=== PATIENT | female | born 1995 | race Caucasian/White ===

== ENCOUNTER 2019-08-25 19:08 | Inpatient (IN) | payer OTHER ==
[~2019-08-25] VITALS: Ht 160 cm; Wt 51.8 kg
[2019-08-25] MEDS ORDERED: ACETAMINOPHEN 325 MG TABLET PO PRN (20:00)
[2019-08-25] MEDS ORDERED: POLYETHYLENE GLYCOL 17 GM PACKET PO PRN (20:00)
[2019-08-25] MEDS ORDERED: DOCUSATE 100 MG CAPSULE PO PRN (20:00)
[2019-08-25] MEDS ORDERED: BISACODYL 10 MG SUPP PR PRN (20:00)
[2019-08-25] MEDS ORDERED: PLEASE ENTER ALLERGIES MC SCH (21:00)
[2019-08-25] MEDS ORDERED: PLEASE ENTER HEIGHT AND WEIGHT MC SCH (21:00)
[2019-08-25 21:45] VITALS: BP 130/79
[2019-08-25] MEDS ORDERED: NICOTINE 14MG/24 HR PATCH.TD24 ONE (22:38)
[2019-08-25 22:47] VITALS: BP 130/79
[2019-08-25] MEDS ORDERED: NICOTINE 14MG/24 HR PATCH.TD24 TD SCH (23:00)
[2019-08-26] MEDS: ONDANSETRON ODT 4 MG PO PRN ×2 (01:09→22:59)
[2019-08-26 01:58] LABS: MICROSCOPIC INDICATED
[2019-08-26 08:10] VITALS: BP 103/61
[2019-08-26 08:29] LABS: BASOPHILS # (AUTO) 0.03 x10^3/uL (0-0.1); BASOPHILS % (AUTO) 1 % (0-1); EOSINOPHILS # (AUTO) 0.05 x10^3/uL (0-0.4); EOSINOPHILS % (AUTO) 1 % (1-7); LYMPHOCYTES # (AUTO) 2.51 x10^3/uL (1-3.4); LYMPHOCYTES % (AUTO) 39 % (22-44); MD NO; MEAN CORPUSCULAR HGB CONC 33.6 g/dL (32.4-35.8); MEAN CORPUSCULAR VOLUME 92.3 fL (80-100); MEAN PLATELET VOLUME 7.1 fL (7.4-10.4); MONOCYTES # (AUTO) 0.53 x10^3/uL (0.2-0.8); MONOCYTES % (AUTO) 8 % (2-9); NEUTROPHILS # (AUTO) 3.27 x10^3/uL (1.8-6.8); NEUTROPHILS % (AUTO) 51 % (42-75); PLATELET COUNT 289 x10^3/uL (130-400); RED BLOOD COUNT 4.61 x10^6/uL (3.82-5.3); RED CELL DISTRIBUTION WIDTH 12.7 % (9.6-15.2)
[2019-08-26 08:43] LABS: ALBUMIN 3.6 g/dL (3.4-5.0); ANION GAP 12 mmol/L (5-15); CALCIUM 8.8 mg/dL (8.5-10.1); CHLORIDE 104 mmol/L (98-107)
[2019-08-26 09:10] LABS: ALANINE AMINOTRANSFERASE 15 U/L (12-78); ALKALINE PHOSPHATASE 62 U/L (45-117); BILIRUBIN, DIRECT 0.2 mg/dL (0.1-0.2); BILIRUBIN,INDIRECT 0.3 mg/dL (0.0-2.0); BILIRUBIN,TOTAL 0.5 mg/dL (0.2-1.0); CHOLESTEROL, TOTAL 138 mg/dL (140-239); CREATININE 0.59 mg/dL (0.55-1.02); FREE T4 (FREE THYROXINE) 1.02 ng/dL (0.76-1.46); HDL CHOL % 51 % (28-40); HDL CHOLESTEROL (DIRECT) 70 mg/dL (40-60); LDL CHOLESTEROL,CALCULATED 57 mg/dL (54-169); LDL/HDL RATIO 0.8 (0.5-3.0); TOTAL PROTEIN 7.5 g/dL (6.4-8.2); TRIGLYCERIDES 54 mg/dL (50-200); VLDL CHOLESTEROL 11 mg/dL (0-25)
[2019-08-26] MEDS: NICOTINE 7 MG/24 HR PATCH.TD24 TD SCH (10:36)
[2019-08-26] MEDS ORDERED: POTASSIUM CHLORIDE 20 MEQ TAB.ER.PRT PO ONE (19:00)
[2019-08-26 20:11] VITALS: BP 106/51
[2019-08-26] MEDS: NALTREXONE HCL 50 MG TABLET PO SCH (20:14)
[2019-08-26] MEDS ORDERED: ESCITALOPRAM 10MG TABLET PO SCH (21:00)
[2019-08-27 07:25] VITALS: BP 110/75
[2019-08-27] MEDS: THIAMINE 100MG TABLET PO SCH (08:26)
[2019-08-27] MEDS: MULTIVITAMIN 1 TABLET PO SCH (08:26)
[2019-08-27] MEDS: FOLIC ACID 1 MG TABLET PO SCH (08:27)
[2019-08-27] MEDS: LORazepam 0.5MG TABLET PO PRN ×2 (09:11→19:23)
[2019-08-27] MEDS: ONDANSETRON ODT 4 MG PO PRN (09:11)
[2019-08-27] MEDS: NICOTINE 7 MG/24 HR PATCH.TD24 TD SCH (17:40)
[2019-08-27 20:02] VITALS: BP 113/70
[2019-08-27] MEDS: ESCITALOPRAM 10MG TABLET PO SCH (21:51)
[2019-08-27] MEDS: NALTREXONE HCL 50 MG TABLET PO SCH (21:52)
[2019-08-28 07:30] VITALS: BP 111/70
[2019-08-28] MEDS: FOLIC ACID 1 MG TABLET PO SCH (08:28)
[2019-08-28] MEDS: MULTIVITAMIN 1 TABLET PO SCH (08:29)
[2019-08-28] MEDS: THIAMINE 100MG TABLET PO SCH (08:29)
[2019-08-28] MEDS: NICOTINE 7 MG/24 HR PATCH.TD24 TD SCH ×2 (08:30→21:04)
[2019-08-28] MEDS: LORazepam 0.5MG TABLET PO PRN ×2 (08:34→21:03)
[2019-08-28] MEDS: ESCITALOPRAM 10MG TABLET PO SCH (10:18)
[2019-08-28] MEDS: NALTREXONE HCL 50 MG TABLET PO SCH (12:09)
[2019-08-28] MEDS: ONDANSETRON ODT 4 MG PO PRN (17:16)
[2019-08-28 19:29] VITALS: BP 103/71
[2019-08-29 07:00] VITALS: BP 115/81
[2019-08-29] MEDS: THIAMINE 100MG TABLET PO SCH (08:43)
[2019-08-29] MEDS: ESCITALOPRAM 10MG TABLET PO SCH (08:43)
[2019-08-29] MEDS: NALTREXONE HCL 50 MG TABLET PO SCH (08:44)
[2019-08-29] MEDS: MULTIVITAMIN 1 TABLET PO SCH (08:44)
[2019-08-29] MEDS: FOLIC ACID 1 MG TABLET PO SCH (08:44)
[2019-08-29] MEDS: LORazepam 0.5MG TABLET PO PRN ×3 (08:53→20:06)
[2019-08-29 19:54] VITALS: BP 107/73
[2019-08-30] MEDS: LORazepam 0.5MG TABLET PO PRN (01:15)
[2019-08-30 07:00] VITALS: BP 109/75
[2019-08-30] MEDS: NALTREXONE HCL 50 MG TABLET PO SCH (07:55)
[2019-08-30] MEDS: MULTIVITAMIN 1 TABLET PO SCH (07:55)
[2019-08-30] MEDS: FOLIC ACID 1 MG TABLET PO SCH (07:55)
[2019-08-30] MEDS: ESCITALOPRAM 10MG TABLET PO SCH (07:55)
[2019-08-30] MEDS: THIAMINE 100MG TABLET PO SCH (07:55)
[2019-08-30] MEDS: NICOTINE 7 MG/24 HR PATCH.TD24 TD SCH (07:56)
[2019-08-30] MEDS ORDERED: NALT50TA PO (08:15)
[2019-08-30] MEDS ORDERED: MULT1TAB60 PO (08:15)
[2019-08-30] MEDS ORDERED: ESCI10TA PO (08:15)
[2019-08-30] MEDS ORDERED: NICO-485 TD (08:15)
== END 2019-08-30 08:35 | disposition home or self-care (01) | DRG 885 ==
LOC: 3E 20:30
PROVIDERS: ADMIT Psychiatry & Neurology Psychosomatic Medicine; ATTEND Psychiatry & Neurology Psychosomatic Medicine
DX: F33.2 Major depressive disorder, recurrent severe without psychotic features (principal); F10.24 Alcohol dependence with alcohol-induced mood disorder; K51.90 Ulcerative colitis, unspecified, without complications; T45.0X2A Poisoning by antiallergic and antiemetic drugs, intentional self-harm, initial encounter; E87.6 Hypokalemia; F41.1 Generalized anxiety disorder; F17.210 Nicotine dependence, cigarettes, uncomplicated; Z56.0 Unemployment, unspecified; Z88.1 Allergy status to other antibiotic agents; Z91.5 Personal history of self-harm; Y92.89 Other specified places as the place of occurrence of the external cause
CPT/HCPCS: 36415; 71045; 80048; 80061; 80076; 81001; 82607; 84439; 84443; 85025; 93005; Q0162